=== PATIENT | female | born 2000 ===

== ENCOUNTER → 2021-02-28 15:31 | Outpatient (CLI) | payer OTHER, SELFPAY ==
--- NOTE | 2021-02-28 | DI.MRI.S_ITS ---
PROCEDURE: MR THORACIC SPINE WO CON INDICATIONS: SPRAIN OF LIGAMENTS OF SPINE TECHNIQUE: Noncontrast sagittal T1 spine echo and T2 fast spin echo, sagittal STIR, axial T1 and T2 fast spin echo through the thoracic spine. COMPARISON: None. FINDINGS: Image quality: Excellent. Alignment and Curvature: Normal thoracic vertebral body height and alignment. Bone Marrow: Marrow is of normal overall signal. No bone marrow edema or suspicious focal marrow signal abnormality. Spinal Cord: Normal morphology and signal intensity of the thoracic cord. There is no syrinx. Normal position of the conus. Regional Soft Tissues: Prevertebral and paraspinous soft tissues are normal. The anterior longitudinal ligament, posterior longitudinal ligament, ligamentum flavum, interspinous ligaments, and supraspinous ligament appear normal. There is no soft tissue edema identified. Miscellaneous: There is no spinal canal or neural foraminal narrowing at any thoracic level. IMPRESSION: Normal thoracic spine MRI. No abnormal ligamentous signal or soft tissue edema to suggest sprain. Dictated by: Marshall Cardona M.D. on 02/28/2021 at 17:24 Approved by: Marshall Cardona M.D. on 02/28/2021 at 17:26
--- NOTE | 2021-02-28 | DI.MRI.S_ITS ---
PROCEDURE: MR LUMBAR SPINE WO CON INDICATIONS: SPRAIN OF LIGAMENTS OF SPINE TECHNIQUE: Noncontrast sagittal T1 spin echo and T2 fast echo, sagittal STIR, axial T1 and T2 fast spin echo through the lumbar spine. In cases with scoliosis, additional coronal T2 fast spin echo may be performed. COMPARISON: None. FINDINGS: Image quality: Excellent. Alignment and Curvature: Normal lumbar vertebral body height and alignment. Bone Marrow: Normal bone marrow signal intensity. No suspicious focal marrow signal abnormality or bone marrow edema. Visualized upper sacrum is unremarkable. Spinal Cord: Normal position and appearance of the conus. Regional Soft Tissues: There is mildly increased T2 signal in the soft tissues adjacent to the left inferior L3 facet pillar. Paraspinous and prevertebral soft tissues are otherwise unremarkable. T12-L1: Normal appearance. L1-L2: Normal appearance. L2-L3: Normal appearance. L3-L4: Normal appearance. L4-L5: Normal appearance. L5-S1: Normal appearance. IMPRESSION: Mildly increased T2 signal in the soft tissues adjacent to the left inferior L3 facet pillar. This could be indicative of a mild sprain of the associated facet capsular ligaments. Dictated by: Marshall Cardona M.D. on 02/28/2021 at 17:13 Approved by: Marshall Cardona M.D. on 02/28/2021 at 17:21
--- NOTE | 2021-02-28 15:45 | DI.MRI.S_ITS ---
PROCEDURE: MR CERVICAL SPINE WO CON INDICATIONS: Sprain of ligaments of spine TECHNIQUE: Noncontrast sagittal T1 spin echo and T2 fast spin echo, sagittal STIR, foraminal oblique sagittal T2 fast spin echo, and axial gradient echo or T2 fast spin echo through the cervical spine. COMPARISON: None. FINDINGS: Image quality: Excellent. Alignment and Curvature: Normal cervical spine vertebral body height and alignment. Normal configuration of the craniocervical junction. Bone Marrow: No suspicious focal marrow signal abnormality or bone marrow edema. Spinal Cord: Normal morphology and signal intensity of the cervical cord. There is no syrinx. No inferior cerebellar tonsillar herniation. Regional Soft Tissues: Prevertebral and paraspinous soft tissues are normal. Ligaments of the craniocervical junction are intact. The anterior longitudinal ligament, posterior longitudinal ligament, ligamentum flavum, interspinous ligaments, and supraspinous ligament appear intact with no abnormal signal. Paraspinous soft tissues demonstrate no edema. There is no prevertebral fluid. C2-C3: Normal appearance. C3-C4: Normal appearance. C4-C5: Normal appearance. C5-C6: Normal appearance. C6-C7: Normal appearance. C7-T1: Normal appearance. IMPRESSION: Unremarkable cervical spine MRI. No soft tissue edema to suggest a ligamentous injury. No traumatic finding otherwise. Dictated by: Marshall Cardona M.D. on 02/28/2021 at 17:26 Approved by: Marshall Cardona M.D. on 02/28/2021 at 17:29
== END ==
PROVIDERS: Referring Provider Chiropractor; Visit Provider Chiropractor
DX: S13.4XXA Sprain of ligaments of cervical spine, initial encounter (principal); S23.3XXA Sprain of ligaments of thoracic spine, initial encounter; S33.5XXA Sprain of ligaments of lumbar spine, initial encounter; V89.2XXA Person injured in unspecified motor-vehicle accident, traffic, initial encounter
CPT/HCPCS: 72141; 72146; 72148

== ENCOUNTER 2021-11-16 15:51 | Emergency (ER) | payer OTHER, SELFPAY ==
[2021-11-16] VITALS (8 sets, daily range): BP systolic 116–153; BP diastolic 56–91; PULSE 94–130; RESP 17–21; TEMP 36.9; O2SAT 97–100; BMI 70.4
--- NOTE | 2021-11-16 16:08 | ED_ITS ---
HPI - Allergic Reaction <Whit Sweeney, [facility] - Last Filed: 11/16/21 19:03> General Chief complaint: Allergic Reaction Stated complaint: Thinks allergic reaction, face swelling Time Seen by Provider: 11/16/21 15:57 History of Present Illness HPI narrative: This is an otherwise healthy 21-year-old female with no known allergies who presents to the emergency department for abrupt onset of facial swelling, chest tightness, hives and sensation of allergic reaction her arrival. Patient states that she took 20 mg of Benadryl this morning denies allergens. Only medication that she uses is topical clindamycin for acne, states that she has been using this for 1 year. Denies any new foods, states that she had a breakfast corn dog and lasagna today for food. Denies any history of food allergies, states that she has had an allergic reaction similar to this in the past but does not know to what. She denies any vomiting fever denies any recent illness. She denies any throat mouth swelling, states that her face is red and feels puffy, states that she had sensation of a tight chest just prior to arrival. She denies any history of asthma or lung problems. Related Data Previous Rx's Medication Instructions Recorded cetirizine 10 mg tablet 10 mg PO DAILY PRN #14 tab 11/16/21 cetirizine 10 mg tablet 10 mg PO DAILY PRN #14 tab 11/16/21 epinephrine 0.3 mg/0.3 mL 0.3 mg (0.3 mL) IM Q4H PRN #2 ea 11/16/21 injection, auto-injector epinephrine 0.3 mg/0.3 mL 0.3 mg (0.3 mL) IM Q5-15M PRN #2 ea 11/16/21 injection, auto-injector famotidine 20 mg tablet 20 mg PO DAILY 7 Days #14 tab 11/16/21 famotidine 20 mg tablet 20 mg PO DAILY PRN #20 tab 11/16/21 hydroxyzine HCl 10 mg tablet 10 mg PO TID PRN #14 tab 11/16/21 hydroxyzine HCl 10 mg tablet 10 mg PO TID PRN #14 tab 11/16/21 methylprednisolone 4 mg tablets in See Rx Instructions .ROUTE 11/16/21 a dose pack (Medrol (Arturo)) .COMPLEX #21 ea methylprednisolone 4 mg tablets in See Rx Instructions .ROUTE 11/16/21 a dose pack (Medrol (Arturo)) .COMPLEX #21 ea Review of Systems <LALIT Quesada - Last Filed: 11/16/21 19:03> Review of Systems Narrative: General: denies fever, chills, malaise, sweats, fatigue Head/Neck: denies headache, neck pain, dizziness, endorses facial swelling, redness, 2 or 3 urticarial lesions on his cheeks Eyes: denies visual changes, eye pain Cardio: denies chest pain, palpitations, edema Respiratory: denies dyspnea, endorses chest tightness, GI: denies abdominal pain, nausea, vomiting, or diarrhea : denies dysuria, hematuria, urinary retention, frequency or incontinence MSK: denies joint pain, muscle weakness Skin: denies rash, itching, endorses hives on trunk and face Neuro: denies numbness, tingling Exam <LALIT Quesada - Last Filed: 11/16/21 19:03> Narrative Exam Narrative: Independently reviewed vitals signs and nursing notes. General: cooperative, no respiratory distress distress, patient is sitting upright, no difficulty breathing, well developed and well groomed Head: atraumatic, symmetrical facial expressions Neck: supple, atraumatic, without lymphadenopathy. Eyes: pupils equal round and reactive, EOMI, conjunctiva normal Nose: nares patent, no rhinorrhea Mouth/Throat: uvula midline, moist mucus membranes, posterior pharynx without erythema no oropharynx edema or swelling in her lips Cardiovascular: Sinus tachycardia on monitor, patient states that she is anxious, no peripheral edema, warm extremities Respiratory: normal effort, able to speak in complete sentences, no audible wheezing, stridor, or rales. No retractions or tachypnea. Breath sounds are clear throughout all mijares, no tachypnea GI: abdomen soft, nontender to palpation, nondistended, no masses, no exquisite tenderness with exam, without guarding or rebound. MSK: moves all extremities, ambulatory w/steady gait, neurovascularly intact, no weakness Skin: brisk capillary refill,, 2 urticarial lesions on face, pruritic urticarial lesions, circumscribed raised, erythematous plaques with central pallor on trunk and extremities Neuro: normal speech and cognition, A&O x3, normal tone Psych: mental status is grossly normal, congruent mood, normal affect, pleasant and cooperative Initial Vital Signs Initial Vital Signs: Vital Signs Temperature 98.4 F 11/16/21 15:55 Pulse Rate 130 H 11/16/21 15:55 Respiratory Rate 20 11/16/21 15:55 Blood Pressure 142/82 H 11/16/21 15:55 Pulse Oximetry 100 11/16/21 15:55 <Miah Delgado MD - Last Filed: 11/20/21 07:24> Initial Vital Signs Initial Vital Signs: Vital Signs Temperature 98.4 F 11/16/21 15:55 Pulse Rate 130 H 11/16/21 15:55 Respiratory Rate 20 11/16/21 15:55 Blood Pressure 142/82 H 11/16/21 15:55 Pulse Oximetry 100 11/16/21 15:55 Course <LALIT Quesada - Last Filed: 11/16/21 19:03> Orders Ordered: Discontinued Medications Diphenhydramine HCl (Diphenhydramine 50 Mg/Ml Vial) 25 mg IV NOW ONE Stop: 11/16/21 16:05 Last Admin: 11/16/21 16:13 Dose: 25 mg Documented by: DIANA Famotidine (Famotidine 20 Mg/2 Ml Vial) 20 mg IV NOW ONE Stop: 11/16/21 16:07 Last Admin: 11/16/21 16:13 Dose: 20 mg Documented by: DIANA Methylprednisolone (Methylprednisolone 125 Mg/2 Ml Vial) 125 mg IV NOW ONE Stop: 11/16/21 16:05 Last Admin: 11/16/21 16:13 Dose: 125 mg Documented by: DIANA Reevaluation(s) Reevaluation #1: [id number] Rechecked patient after her medications have been given, she states that her face is not seeming as red and hot as it was earlier, she denies any swelling in her mouth her throat still, she denies any shortness of breath or chest tightness at this time. She endorses feeling slightly better and still does not know how this could have happened. She denies any new foods, lotions, creams, sunburn, recent illness like a cold, or contact with any new things. Vital Signs Vital signs: Vital Signs - 8 hr 11/16/21 15:55 11/16/21 15:59 11/16/21 16:00 Temperature 98.4 F Pulse Rate 130 H 126 H 96 H Respiratory Rate 20 Blood Pressure 142/82 H 153/91 H 142/82 H Pulse Oximetry 100 100 100 11/16/21 16:30 11/16/21 17:00 11/16/21 17:01 Temperature Pulse Rate 94 H 98 H 96 H Respiratory Rate 17 20 18 Blood Pressure 122/58 L 116/84 Pulse Oximetry 100 97 100 11/16/21 17:26 11/16/21 17:30 Temperature Pulse Rate 99 H 103 H Respiratory Rate 21 20 Blood Pressure 133/56 L 121/57 L Pulse Oximetry 100 98 <Miah Delgado MD - Last Filed: 11/20/21 07:24> Orders Ordered: Discontinued Medications Diphenhydramine HCl (Diphenhydramine 50 Mg/Ml Vial) 25 mg IV NOW ONE Stop: 11/16/21 16:05 Last Admin: 11/16/21 16:13 Dose: 25 mg Documented by: DIANA Famotidine (Famotidine 20 Mg/2 Ml Vial) 20 mg IV NOW ONE Stop: 11/16/21 16:07 Last Admin: 11/16/21 16:13 Dose: 20 mg Documented by: DIANA Methylprednisolone (Methylprednisolone 125 Mg/2 Ml Vial) 125 mg IV NOW ONE Stop: 11/16/21 16:05 Last Admin: 11/16/21 16:13 Dose: 125 mg Documented by: DIANA Vital Signs Vital signs: Vital Signs - 8 hr 11/16/21 15:55 11/16/21 15:59 11/16/21 16:00 Temperature 98.4 F Pulse Rate 130 H 126 H 96 H Respiratory Rate 20 Blood Pressure 142/82 H 153/91 H 142/82 H Pulse Oximetry 100 100 100 11/16/21 16:30 11/16/21 17:00 11/16/21 17:01 Temperature Pulse Rate 94 H 98 H 96 H Respiratory Rate 17 20 18 Blood Pressure 122/58 L 116/84 Pulse Oximetry 100 97 100 11/16/21 17:26 11/16/21 17:30 Temperature Pulse Rate 99 H 103 H Respiratory Rate 21 20 Blood Pressure 133/56 L 121/57 L Pulse Oximetry 100 98 MDM - Allergic Reaction <LALIT Quesada - Last Filed: 11/16/21 19:03> [facility] Narrative Medical decision making narrative: This is a 21-year-old female without any known allergies who presents to the emergency department for allergic reaction from unknown source. Patient denies any new product use, foods, medications, or known exposures. Patient has had a similar reaction in the past, states that it was none known at that time as well. Patient presented to the ER with erythema bilateral cheeks, urticaria on her trunk and some lesions on her arms. She was given 125 mg of methylprednisolone, famotidine 20 mg, of IV Benadryl. After 1 hour, patient states that she is feeling better, her face erythema has improved, she denies any pruritic urticaria at this time, she does not have any oral pharynx edema, uvula midline without edema, no drooling, patient is tolerating p.o., and is encouraged to follow-up with her primary care provider as soon as possible and request allergy testing. Patient denied any shortness of breath, chest pain, endorses that her chest tightness has improved. She was prescribed 2 epinephrine autoinjector pens, cetirizine 10 mg, famotidine 20 mg daily, hydroxyzine as needed, and a Medrol Dosepak. Patient is encouraged to return to the emergency department for any worsening, any oral swelling, difficulty swallowing, chest tightness, shortness of breath or wheezing. Breath sounds were clear throughout all mijares on multiple assessments, patient is able to talk in full sentences, is pleasant, states that she feels safe to go home. Patient is appropriate and amenable to discharge home. Vital signs are stable on repeat examination is unremarkable. Patient has been informed of results. Patient has been given strict return to ER precautions for any new or worsening symptoms. Patient understands to follow up closely with outpatient providers as instructed. Patient understands plan and agrees to discharge home. All questions and concerns answered at this time. Discharge Plan Departure Patient Disposition: Home Clinical Impression: Allergic reaction Qualifiers: Encounter type: initial encounter Qualified Code(s): T78.40XA - Allergy, unspecified, initial encounter Instructions: Anaphylaxis, Allergy Testing, Angioedema Activity Restrictions/Additional Instructions: *You have been diagnosed with an allergic reaction without known cause. Please follow-up with your primary care provider for allergy testing referral. I have prescribed you 2 epi pens, a medication called cetirizine to take for the next 5 or more days as long as you have symptoms, and famotidine a medicine to protect your stomach from ulcer if you are having the symptoms still, please take both of these until your better. I have prescribed you a steroid pack to start taking tomorrow, this is the same medication I gave you today in your IV. I gave you medicine called hydroxyzine this is for itching, anxiety or chest tightness. It may help, but it is similar to Benadryl. Please take Benadryl at night as needed for itching or allergy. You had a total of 50 mg Benadryl today, please do not repeat any Benadryl doses for at least 8 hours. Please stay hydrated, return to the emergency department for any mouth swelling, throat swelling, tightness, chest pain, vomiting or other symptom. Please use your EpiPen in that instance. And come straight to the emergency department. I hope that you are feeling better soon, please return if you have any further concerns *What to do: *Please continue to take your regular medications as directed. [x ] New medication prescriptions sent to your pharmacy: [ DOD] [ ] New medication written as a paper prescription [ ] No new medications given *Please follow up with your primary care provider in 2-3 days, call for an appointment. Let them know you were seen in the Emergency Department and that we asked that you be seen for follow-up. We will electronically transmit a record of today's note if your PCP is in our system *If you do not have a primary care provider please contact [phone] to establish care with one of the [facility] primary care providers. *Return to Emergency Department if you should have any new, worsening or concerning symptoms, such as [fever greater than 101F, chills, worsening pain, persistent vomiting or other bothersome symptoms] Prescriptions: New methylprednisolone [Medrol (Arturo)] 4 mg tablets,dose pack See Rx Instructions .ROUTE .COMPLEX Qty: 21 0RF Rx Instructions: orally per package directions cetirizine 10 mg tablet 10 mg PO DAILY PRN (Reason: angioedema) Qty: 14 0RF famotidine 20 mg tablet 20 mg PO DAILY PRN (Reason: allergy symptoms) Qty: 20 0RF hydroxyzine HCl 10 mg tablet 10 mg PO TID PRN (Reason: itching) Qty: 14 0RF epinephrine 0.3 mg/0.3 mL auto-injector 0.3 mg IM Q5-15M PRN (Reason: anaphylaxis) Qty: 2 0RF Rx Instructions: do not exceed 3 doses per episode cetirizine 10 mg tablet 10 mg PO DAILY PRN (Reason: allergy symptoms) Qty: 14 0RF famotidine 20 mg tablet 20 mg PO DAILY 7 Days Qty: 14 0RF epinephrine 0.3 mg/0.3 mL auto-injector 0.3 mg IM Q4H PRN (Reason: hypersensitivity reaction) Qty: 2 0RF hydroxyzine HCl 10 mg tablet 10 mg PO TID PRN (Reason: itching) Qty: 14 0RF methylprednisolone [Medrol (Arturo)] 4 mg tablets,dose pack See Rx Instructions .ROUTE .COMPLEX Qty: 21 0RF Rx Instructions: orally per package directions Referrals: Desiree Pinzon MD [Primary Care Provider] - <Miah Delgado MD - Last Filed: 11/20/21 07:24> Cosign ED Attending Cosignature Attestation: I was immediately available in the department for consultation. This documentation has been reviewed and I agree with assessment and plan. Supervised by Miah Delgado MD
[2021-11-16] MEDS: diphenhydrAMINE 50 MG/ML VIAL 25 MG IV (16:13)
[2021-11-16] MEDS: methylPREDNISolone 125 MG/2 ML VIAL IV (16:13)
[2021-11-16] MEDS: FAMOTIDINE 20 MG/2 ML VIAL IV (16:13)
== END 2021-11-16 17:59 | disposition home or self-care (01) ==
PROVIDERS: Emergency Provider Nurse Practitioner Critical Care Medicine; PCP Student in an Organized Health Care Education/Training Program
DX: T78.40XA Allergy, unspecified, initial encounter (principal)
CPT/HCPCS: 96374; 96375; 99283; 99284; J1200; J2930